=== PATIENT | male | born 1935 | race Caucasian/White ===

== ENCOUNTER → 2018-10-25 | Outpatient (CLI) | payer MEDICARE ==
--- NOTE | 2018-10-25 08:40 | CT ---
EXAMINATION TYPE: CT brain wo con DATE OF EXAM: 10/25/2018 COMPARISON: None HISTORY: 83-year-old male Parkinson's disease, right arm numbness TECHNIQUE: Examination was done in axial plane without intravenous contrast. Coronal and sagittal r econstructions performed. CT DLP: 1174 mGycm Automated exposure control for dose reduction was used. FINDINGS: There is no evidence of acute intracranial hemorrhage, acute ischemic changes, mass, mass-effect, or extra-axial fluid collection. There is no effacement of cerebral sulci or basal subarachnoid cister ns. There is no midline shift. Manzanares-white matter distinction is preserved. Moderate to severe patchy white matter hypodensities in both cerebral hemispheres. Mild hydrocephalus likely secondary to central cerebral atrophy. Navi's ratio calculated at 0.35. Prominent cortical and subcortical hypodensity right parietal lobe and right frontoparietal junction. Density matches that of CSF. Trace mucosal thickening ethmoid air cells. Orbits and globes are intact. Mild trapped fluid inferior right mastoid air cells. IMPRESSION: 1. Large area of encephalomalacia within the right parietal lobe and right frontoparietal junction re lated to prior infarct. 2. Moderate to severe patchy changes of chronic small vessel ischemic disease. 3. Mild hydrocephalus likely secondary to ex vacuo enlargement from central cerebral atrophy. 4. No acute intracranial abnormality seen. If concern for subtle acute ischemia, MRI can be considere d. 5. Some trapped fluid in inferior right mastoid air cells. Correlate for any mastoid pain to exclude mastoiditis.
--- NOTE | 2018-10-25 09:01 | US ---
EXAMINATION TYPE: US carotid duplex BILAT DATE OF EXAM: 10/25/2018 COMPARISON: NONE CLINICAL HISTORY: G20 Parkinsons Disease, R20.0 R arm numbness. EXAM MEASUREMENTS: RIGHT: Peak Systolic Velocity (PSV) cm/sec ----- Right CCA: 38.9 ----- Right ICA: 220.2 ----- Right ECA: 205.0 ICA/CCA ratio: 5.7 RIGHT: End Diastole cm/sec ----- Right CCA: 7.8 ----- Right ICA: 50.1 ----- Right ECA: 12.2 LEFT: Peak Systolic Velocity (PSV) cm/sec ----- Left CCA: 40.3 ----- Left ICA: 235.6 ----- Left ECA: 103.1 ICA/CCA ratio: 5.8 LEFT: End Diastole cm/sec ----- Left CCA: 9.7 ----- Left ICA: 69.5 ----- Left ECA: 15.0 VERTEBRALS (direction of flow): Right Vertebral: Antegrade Left Vertebral: Antegrade Rhythm: Normal Technically difficult study due to heavy calcifications and depth of vessels. Severe plaque with highly stenosed vessels. 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 CTA neck is rec ommended for further assessment of degree of stenosis. Criteria for Assigning % of Stenosis / Diameter reduction (Estimation based on the indirect measurements of the internal carotid artery velocities (ICA PSV). 1. Normal (no stenosis)=ICA PSV < 125 cm/s: ratio < 2.0: ICA EDV<40 cm/s. 2. Less than 50% stenosis=ICA PSV < 125 cm/s: ratio < 2.0: ICA EDV<40 cm/s. 3. 50 to 69% stenosis=ICA PSV of 125 to 230 cm/s: ration 2.0 ? 4.0: ICA EDV 40-100 cm/s. 4. Greater than 70% stenosis to near occlusion= ICA PSV > 230 cm/s: ratio > 4.0: ICA EDV > 100 cm/s. 5. Near occlusion= ICA PSV velocities may be low or undetectable: variable ratio and ICA EDV. 6. Total occlusion=unable to detect flow.
== END ==
LOC: RADCTMAIN 07:44
PROVIDERS: ATTEND Psychiatry & Neurology Neurology
DX: G93.89 Other specified disorders of brain (principal); I67.82 Cerebral ischemia; I65.23 Occlusion and stenosis of bilateral carotid arteries; G91.9 Hydrocephalus, unspecified; G20 Parkinson's disease; R93.0 Abnormal findings on diagnostic imaging of skull and head, not elsewhere classified
CPT/HCPCS: 70450; 93880

== ENCOUNTER 2019-01-07 09:36 | Emergency (ER) | payer MEDICARE ==
[2019-01-07 09:44] VITALS: RESP 18
[2019-01-07] MEDS ORDERED: SODIUM CHLORIDE 0.9% 1,000 ML IV STA (10:21)
--- NOTE | 2019-01-07 10:24 | ED ---
General Adult HPI - General Chief complaint: Neuro Symptoms/Deficit Stated complaint: weakness on left side Time Seen by Provider: 01/07/19 09:56 Source: patient, family, RN notes reviewed Mode of arrival: wheelchair Limitations: no limitations - History of Present Illness Initial comments: Patient is a pleasant 83-year-old male presenting to the emergency Department with complaints of left-sided weakness. Onset of symptoms was 2-3 days ago. Symptoms have somewhat progressively worsened. Patient does not notice of significant difference in today versus yesterday. Patient has mostly left arm weakness however does notice of left leg weakness as well. Patient is able to ambulate with a cane or shuffeled gait. No history or similar symptoms pr eviously. Patient has had some headaches 5/. Headache was not sudden onset. Patient has known carotid artery disease estimated at 70% and has been scheduled for CTA to evaluate for possible treatment. This was as per discussion with Dr. Saez. - Related Data Allergies Allergy/AdvReac Type Severity Reaction Status Date / Time No Known Allergies Allergy Verified 01/07/19 09:40 Review of Systems ROS Statement: Those systems with pertinent positive or pertinent negative responses have been documented in the HPI. ROS Other: All systems not noted in ROS Statement are negative. Constitutional: Denies: fever Eyes: Denies: eye pain ENT: Denies: ear pain Respiratory: Denies: cough, dyspnea Cardiovascular: Denies: chest pain Endocrine: Denies: fatigue Gastrointestinal: Denies: abdominal pain Genitourinary: Denies: dysuria Musculoskeletal: Denies: back pain Skin: Denies: rash Neurological: Reports: headache, weakness, paresthesias (Some odd sensation left arm), abnormal gait. Denies: numbness, confusion Past Medical History Past Medical History: Hypertension Additional Past Medical History / Comment(s): parkinsons, carotid occulsion >70% bilateral History of Any Multi-Drug Resistant Organisms: None Reported Past Surgical History: No Surgical Hx Reported Past Psychological History: No Psychological Hx Reported Smoking Status: Never smoker Past Alcohol Use History: None Reported Past Drug Use History: None Reported General Exam Limitations: no limitations General appearance: alert, in no apparent distress Head exam: Present: normocephalic Eye exam: Present: normal appearance, PERRL, EOMI. Absent: nystagmus ENT exam: Present: normal oropharynx Neck exam: Present: normal inspection Respiratory exam: Present: normal lung sounds bilaterally Cardiovascular Exam: Present: regular rate, normal rhythm GI/Abdominal exam: Present: soft. Absent: tenderness Extremities exam: Present: normal inspection Neurological exam: Present: alert, oriented X3, CN II-XII intact Expanded Neurological exam: Present: protecting the airway Patient oriented to: Present: person, place, time Speech: Present: fluid speech Cranial nerves: EOM's Intact: Normal, Facial Sensation: Normal Sensory exam: Upper Extremity Light Touch: Normal, Lower Extremity Light Touch: Normal Motor strength exam: RUE: 5, LUE: 4, RLE: 5, LLE: 5 Eye Response: (4) open spontaneously Motor Response: (6) obeys commands Verbal Response: (5) oriented Psychiatric exam: Present: normal affect, normal mood Skin exam: Present: normal color Course Vital Signs 01/07/19 09:40 Temperature 97.6 F Pulse Rate 72 Respiratory 18 Rate Blood Pressure 160/89 O2 Sat by Pulse 97 Oximetry - Reevaluation(s) Reevaluation #1: 01/07/19 13:09 Case was earlier discussed with Dr. Nelson who did agree with transfer of patient to [facility]. Case was discussed with Dr. Quintero's, who will accept transfer. Patient and family are updated. Patient was reevaluated. 01/07/19 13:09 Patient was not a TPA candidate secondary to onset of symptoms was more than 4.5 hours. EKG Findings - EKG Comments: EKG Findings:: Normal sinus rhythm 75. OK 182. QRS 104. QT 418. QTC 466. Normal axis. Inferior Q waves. No acute ST change. Medical Decision Making - Medical Decision Making Patient evaluated. Patient and family unchanged. Patient and family updated on results and plan. - Lab Data Result diagrams: 01/07/19 11:08 01/07/19 11:08 Lab Results 01/07/19 01/07/19 01/07/19 Range/Units 11:08 11:08 11:08 WBC 12.4 H (3.8-10.6) k/uL RBC 5.73 (4.30-5.90) m/uL Hgb 16.2 (13.0-17.5) gm/dL Hct 50.1 (39.0-53.0) % MCV 87.4 (80.0-100.0) fL MCH 28.4 (25.0-35.0) pg MCHC 32.5 (31.0-37.0) g/dL RDW 13.5 (11.5-15.5) % Plt Count 242 (150-450) k/uL Neutrophils % 82 % Lymphocytes % 11 % Monocytes % 5 % Eosinophils % 1 % Basophils % 1 % Neutrophils # 10.2 H (1.3-7.7) k/uL Lymphocytes # 1.3 (1.0-4.8) k/uL Monocytes # 0.6 (0-1.0) k/uL Eosinophils # 0.1 (0-0.7) k/uL Basophils # 0.1 (0-0.2) k/uL PT 10.2 (9.0-12.0) sec INR 0.9 (<1.2) APTT 27.8 (22.0-30.0) sec Sodium 141 (137-145) mmol/L Potassium 4.0 (3.5-5.1) mmol/L Chloride 104 (98-107) mmol/L Carbon Dioxide 26 (22-30) mmol/L Anion Gap 11 mmol/L BUN 27 H (9-20) mg/dL Creatinine 1.35 H (0.66-1.25) mg/dL Est GFR (CKD-EPI)AfAm 55 (>60 ml/min/1.73 sqM) Est GFR (CKD-EPI)NonAf 48 (>60 ml/min/1.73 sqM) Glucose 113 H (74-99) mg/dL Calcium 9.7 (8.4-10.2) mg/dL Total Bilirubin 0.8 (0.2-1.3) mg/dL AST 21 (17-59) U/L ALT 9 L (21-72) U/L Alkaline Phosphatase 64 (38-126) U/L Troponin I (0.000-0.034) ng/mL Total Protein 7.9 (6.3-8.2) g/dL Albumin 4.2 (3.5-5.0) g/dL 01/07/19 Range/Units 11:08 WBC (3.8-10.6) k/uL RBC (4.30-5.90) m/uL Hgb (13.0-17.5) gm/dL Hct (39.0-53.0) % MCV (80.0-100.0) fL MCH (25.0-35.0) pg MCHC (31.0-37.0) g/dL RDW (11.5-15.5) % Plt Count (150-450) k/uL Neutrophils % % Lymphocytes % % Monocytes % % Eosinophils % % Basophils % % Neutrophils # (1.3-7.7) k/uL Lymphocytes # (1.0-4.8) k/uL Monocytes # (0-1.0) k/uL Eosinophils # (0-0.7) k/uL Basophils # (0-0.2) k/uL PT (9.0-12.0) sec INR (<1.2) APTT (22.0-30.0) sec Sodium (137-145) mmol/L Potassium (3.5-5.1) mmol/L Chloride (98-107) mmol/L Carbon Dioxide (22-30) mmol/L Anion Gap mmol/L BUN (9-20) mg/dL Creatinine (0.66-1.25) mg/dL Est GFR (CKD-EPI)AfAm (>60 ml/min/1.73 sqM) Est GFR (CKD-EPI)NonAf (>60 ml/min/1.73 sqM) Glucose (74-99) mg/dL Calcium (8.4-10.2) mg/dL Total Bilirubin (0.2-1.3) mg/dL AST (17-59) U/L ALT (21-72) U/L Alkaline Phosphatase (38-126) U/L Troponin I <0.012 (0.000-0.034) ng/mL Total Protein (6.3-8.2) g/dL Albumin (3.5-5.0) g/dL - Radiology Data Radiology results: report reviewed (Computed tomography scan of the brain shows old infarct right frontal parietal. Chronic small vessel ischemia. No acute intercranial abnormality seen. CT angiogram severe stenosis proximal ICA bilateral. Also 50% left ICA cervical portion. Moderate to severe V1 segment of vertebral artery. Dominant right vertebral artery redemonstrated in the head with V4 segment left vertebral artery hypoplastic. Supraclinoid internal carotid artery 50-70% stenosis.), image reviewed (Course chest x-ray shows poorH eart size. No acute process.) Disposition Clinical Impression: Cerebrovascular accident (CVA) Disposition: OTHER INSTITUTION NOT DEFINED Is patient prescribed a controlled substance at d/c from ED?: No Referrals: Laura Guidry MD [REFERRING] - 1-2 days Time of Disposition: 13:10 - Out of Hospital Transfer - Req. Specs Out of Hospital Transfer - Requested Specifics: Other Emergency Center
[2019-01-07 11:14] LABS: Basophils # (A) 0.1 k/uL (0-0.2); Basophils % (A) 1 %; Eosinophils # (A) 0.1 k/uL (0-0.7); Eosinophils % (A) 1 %; HCT 50.1 % (39.0-53.0); HGB 16.2 gm/dL (13.0-17.5); Lymphocytes # (A) 1.3 k/uL (1.0-4.8); Lymphocytes % (A) 11 %; MCH 28.4 pg (25.0-35.0); MCHC 32.5 g/dL (31.0-37.0); MCV 87.4 fL (80.0-100.0); Mean Platelet Volume 7.1; Monocytes # (A) 0.6 k/uL (0-1.0); Monocytes % (A) 5 %; Neutrophils # (A) 10.2 k/uL (1.3-7.7); Neutrophils % (A) 82 %; Platelet Count 242 k/uL (150-450); RBC 5.73 m/uL (4.30-5.90); RDW 13.5 % (11.5-15.5); WBC 12.4 k/uL (3.8-10.6)
[2019-01-07 11:22] LABS: INR 0.9 (<1.2); Partial Thromboplastin Time 27.8 sec (22.0-30.0); Prothrombin Time 10.2 sec (9.0-12.0)
[2019-01-07 11:28] LABS: Albumin 4.2 g/dL (3.5-5.0); Calcium 9.7 mg/dL (8.4-10.2); Total Bilirubin 0.8 mg/dL (0.2-1.3); Total Protein 7.9 g/dL (6.3-8.2)
--- NOTE | 2019-01-07 12:01 | CT ---
EXAMINATION TYPE: CT brain wo con DATE OF EXAM: 01/07/2019 COMPARISON: 10/25/2018 HISTORY: 83-year-old male left-sided arm tingling and whole-body weakness, acute neurologic deficit, stroke suspected. TECHNIQUE: Examination was done in axial plane without intravenous contrast. Coronal and sagittal r econstructions performed. CT DLP: 1741.5 mGycm Automated exposure control for dose reduction was used. FINDINGS: There is no evidence of acute intracranial hemorrhage, acute ischemic changes, mass, mass-effect, or extra-axial fluid collection. There is no effacement of cerebral sulci or basal subarachnoid cister ns. There is no hydrocephalus. There is no midline shift. Manzanares-white matter distinction is preserv ed. Mild to moderate generalized supratentorial volume loss especially with central cerebral atrophy, sim ilar to prior exam. Old infarct with encephalomalacia along the right frontoparietal junction. Secondary volume loss. Mo derate patchy white matter hypodensities in both cerebral hemispheres. Moderate atherosclerotic calcifications within the carotid siphons. Trace mucosal thickening floors of the maxillary sinuses. Mastoid air cells well pneumatized. Stable heterotopic ossification in the subcutaneous tissues along the left temporal region. IMPRESSION: Old infarct in the right frontoparietal region. Moderate patchy burden of chronic small vessel ischem ic disease and generalized atrophy. No acute intracranial abnormality seen. If symptoms persist, foll ow-up CT or MRI.
--- NOTE | 2019-01-07 12:22 | XR ---
EXAMINATION TYPE: XR chest 2V DATE OF EXAM: 01/07/2019 COMPARISON: None HISTORY: 83-year-old male confusion, altered mental status TECHNIQUE: AP and lateral views FINDINGS: Heart upper limits of normal in size. Aorta within normal limits. Some strandy atelectasis in the low er lungs. No consolidation or pleural effusion. IMPRESSION: Borderline heart size. Some strandy bibasilar atelectasis. No acute process seen.
--- NOTE | 2019-01-07 12:39 | CT ---
EXAMINATION TYPE: CT angio head neck DATE OF EXAM: 01/07/2019 COMPARISON: Correlation CT brain same day HISTORY: 83-year-old male acute neurologic deficits, suspected stroke, left-sided arm tingling and wh ole body weakness. TECHNIQUE: Contiguous axial scanning of the head and neck performed with IV Contrast, patient injecte d with 65 mL of Isovue 370. Coronal/sagittal MIP reconstructions performed. 3-D reconstructions gener ated on a dedicated independent workstation. CT DLP: 1741.5 mGycm Automated exposure control for dose reduction was used. FINDINGS: Neck: Some retained ingested debris within the mid thoracic esophagus. Moderate atherosclerotic calcifications within the aortic arch with bovine configuration to the arch vessels. The right vertebral artery is dominant. Moderate to severe atherosclerotic calcifications at the orig in of the right vertebral artery. The vessels are otherwise patent throughout the course. Tortuous proximal right common carotid artery. Severe calcifications at the right bifurcation with a severe, greater than 70% stenosis within the ri ght carotid bulb. Bifurcation is located 2.5 cm below the angle of the mandible. The right ICA has a short retropharyngeal course with the remaining cervical portion visualized. Left common carotid artery is patent. Severe atherosclerotic plaque and calcification within the left carotid bulb causing a severe, greater than 70% stenosis. The bifurcation is located approximately 2 .5 cm below the angle of the mandible. There is additional mild, just under 50% atherosclerotic narrowing of the upper cervical portion of t he left ICA. Head: Dominant right vertebral artery. The V4 segment of the left vertebral artery is hypoplastic. Basilar artery is patent as is the remainder of the posterior circulation. Moderate, between 50 and 70% narrowing of the bilateral supraclinoid internal carotid arteries. No aneurysmal change is seen. IMPRESSION: NECK: 1. SEVERE (GREATER THAN 70%) BILATERAL PROXIMAL ICA STENOSES ON BOTH SIDES, LEFT GREATER THAN RIGHT. ADDITIONAL MILD, JUST UNDER 50% ATHEROSCLEROTIC NARROWING OF THE UPPER CERVICAL PORTION OF THE LEFT I CA. 2. MODERATE TO SEVERE ATHEROSCLEROTIC NARROWING AT THE ORIGIN AND V1 SEGMENT RIGHT VERTEBRAL ARTERY. THE RIGHT VERTEBRAL ARTERY IS DOMINANT. HEAD: 1. DOMINANT RIGHT VERTEBRAL ARTERY REDEMONSTRATED. THE V4 SEGMENT LEFT VERTEBRAL ARTERY IS HYPOPLASTI C. 2. MODERATE, BETWEEN 50 AND 70% ATHEROSCLEROTIC NARROWING OF THE BILATERAL SUPRACLINOID INTERNAL BATISTA TID ARTERIES, SUSPECT LEFT GREATER THAN RIGHT.
[2019-01-07] MEDS ORDERED: ASPIRIN 81 MG PO STA (12:50)
[2019-01-07 15:07] VITALS: BP 168/88; TEMP 98
[2019-01-07 15:10] VITALS: PULSE 72
== END 2019-01-07 13:50 | disposition other institution (70) ==
LOC: EC 09:36
DX: I63.9 Cerebral infarction, unspecified (principal); I10 Essential (primary) hypertension
CPT/HCPCS: 36415; 93005; 80053; 84484; 85025; 85610; 85730; 71046; 70496; 70450; 70498; 99285; 96360; Q9967